=== PATIENT | female | born 1990 | race African-American/Black ===

== ENCOUNTER 2017-10-10 21:38 | Emergency (ER) | payer MEDICAID ==
[~2017-10-10] VITALS: Ht 167.6 cm; Wt 127.0 kg
[2017-10-10 23:22] LABS: CLARITY URINE CLEAR (CLEAR); COLOR URINE YELLOW (YELLOW); KETONES URINE TRACE (NEGATIVE); LEUKOCYTE ESTERASE URINE NEGATIVE (NEGATIVE); NITRITE URINE NEGATIVE (NEGATIVE); OCCULT BLOOD URINE NEGATIVE (NEGATIVE); PH URINE 6.5 (4.5-8.0); PROTEIN URINE NEGATIVE (NEGATIVE); SPECIFIC GRAVITY URINE 1.023 (1.005-1.030)
[2017-10-11] MEDS ORDERED: PANTOPRAZOLE SODIUM 40 MG/VIAL IV STA (00:09)
[2017-10-11] MEDS ORDERED: SODIUM CHLORIDE 0.9% 1,000 ML IV ONE (00:09)
[2017-10-11 00:45] LABS: BASOPHILS % 0.4 % (0.0-2.0); HEMATOCRIT. 28.5 % (36.0-48.0); HEMOGLOBIN. 8.7 g/dL (12.0-16.0); LYMPHOCYTES % 40.9 % (20.0-50.0); MEAN CORPUSCULAR HEMOGLOBIN 19.8 pg (28.0-32.0); MEAN CORPUSCULAR VOLUME 64.8 fL (81.0-99.0); MEAN PLATELET VOLUME 9.1 fl (7.4-10.4); MONOCYTES % 6.3 % (2.0-8.0); NEUTROPHILS % 51.4 % (40.0-76.0); PLATELET 262 x1000/uL (130-400); RED BLOOD CELL COUNT 4.39 mill/uL (4.2-5.4); RED CELL DISTRIBUTION WIDTH 17.8 % (11.6-14.6)
[2017-10-11 00:48] LABS: CHLORIDE 111 mEq/L (98-107)
[2017-10-11 00:52] LABS: PROTHROMBIN TIME 10.7 sec (9.4-11.6)
[2017-10-11 00:53] LABS: ETHANOL BLOOD < 10 mg/dL
[2017-10-11] MEDS ORDERED: SODIUM CHLORIDE 0.9% 1,000 ML IV NR (01:33)
[2017-10-11 01:35] LABS: PLATELET ESTIMATE NORMAL
[2017-10-11] MEDS ORDERED: IOHEXOL-350 100 ML BOTTLE ONE (05:14)
[2017-10-11 05:26] VITALS: BP 127/70
[2017-10-11 11:24] LABS: *AMPHETAMINES SCREEN URINE NEGATIVE (NEGATIVE)
[2017-10-11 11:25] LABS: *BARBITURATES SCREEN URINE NEGATIVE (NEGATIVE); *BENZODIAZEPINES SCREEN URINE NEGATIVE (NEGATIVE); *COCAINE SCREEN URINE NEGATIVE (NEGATIVE); CANNABINOID URINE SCREEN NEGATIVE (NEGATIVE); METHADONE URINE SCREEN NEGATIVE (NEGATIVE); OPIATES URINE SCREEN NEGATIVE (NEGATIVE); PHENCYCLIDINE URINE SCREEN NEGATIVE (NEGATIVE)
== END 2017-10-11 05:27 | disposition home or self-care (01) ==
LOC: ER 21:38
DX: R42 Dizziness and giddiness (principal); D64.9 Anemia, unspecified; R06.02 Shortness of breath; R91.1 Solitary pulmonary nodule; J45.909 Unspecified asthma, uncomplicated; F17.200 Nicotine dependence, unspecified, uncomplicated; Z98.890 Other specified postprocedural states
CPT/HCPCS: 36415; 70450; 71045; 71275; 80053; 80305; 81003; 83605; 83690; 83880; 84484; 85025; 85044; 85379; 85610; 86850; 86900; 86901; 87040; 87086; 93005; 96361; 96374; 99285; C9113; G0482; J7030; Q9967; Z7610